=== PATIENT | female | born 1955 ===

== ENCOUNTER 2016-09-08 18:49 | Emergency (ER) | payer OTHER ==
[2016-09-08 19:13] VITALS: BP 118/71; PULSE 74; RESP 16; TEMP 98.5; O2SAT 97
--- NOTE | 2016-09-08 21:05 | ED PDOC ---
HPI: CCC, URI, Sore Throat Time Seen by Provider: 09/08/16 19:54 Chief Complaint (Nursing): Anxiety History Per: Patient (states that she was told to come to the ER because of concerns of outpatient x-ray finding that was done in July. Patient was in the clinic at [facility] today because of respiratory symptoms that started 1-2 months ago after she was exposed to vaccum bag dust. She is also very upset that she got two phone calls with conflicting results/concerns.) History/Exam Limitations: no limitations Associated Symptoms: Cough. denies: Fever, Chills, Sputum, Neck Pain, Sinus Drainage, Myalgias, Nasal Congestion, Nausea, Vomiting, Diarrhea Past Medical History Reviewed: Historical Data, Nursing Documentation, Vital Signs Vital Signs: Last Vital Signs Temp 98.5 F 09/08/16 19:10 Pulse 74 09/08/16 19:10 Resp 16 09/08/16 19:10 BP 118/71 09/08/16 19:10 Pulse Ox 97 09/08/16 21:14 - Medical History PMH: Diabetes, Hypothyroidism - Surgical History Surgical History: Tonsillectomy - Family History Family History: States: Unknown Family Hx - Living Arrangements Living Arrangements: Alone - Social History Current smoker - smoking cessation education provided: Yes - Home Medications Home Medications: Ambulatory Orders Medication Instructions Recorded Meclizine [Meclizine*] 25 mg PO Q6 PRN #20 tab 03/01/15 Nitrofurantoin Macrocrystals 100 mg PO BID #14 cap 03/01/15 [Macrobid] Azithromycin [Z-Milton] 250 mg PO DAILY #6 tab 09/08/16 - Allergies Allergies/Adverse Reactions: Allergies Allergy/AdvReac Type Severity Reaction Status Date / Time No Known Allergies Allergy Verified 09/08/16 19:10 Review of Systems ROS Statement: Except As Marked, All Systems Reviewed And Found Negative Constitutional: Negative for: Fever, Chills Respiratory: Positive for: Cough. Negative for: Shortness of Breath, Sputum Gastrointestinal: Negative for: Nausea, Vomiting Physical Exam - Reviewed Nursing Documentation Reviewed: Yes Vital Signs Reviewed: Yes - Physical Exam Appears: Positive for: Well, Non-toxic, No Acute Distress Head Exam: Positive for: ATRAUMATIC, NORMAL INSPECTION, NORMOCEPHALIC Skin: Positive for: Normal Color, Warm, DRY Eye Exam: Positive for: EOMI, Normal appearance, PERRL ENT: Positive for: Normal ENT Inspection Neck: Positive for: Normal, Painless ROM Cardiovascular/Chest: Positive for: Regular Rate, Rhythm Respiratory: Positive for: CNT, Normal Breath Sounds Gastrointestinal/Abdominal: Positive for: Normal Exam, Bowel Sounds, Soft Back: Positive for: Normal Inspection Extremity: Positive for: Normal ROM Neurologic/Psych: Positive for: Alert, Oriented - ECG O2 Sat by Pulse Oximetry: 97 Medical Decision Making Medical Decision Making: 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 Disposition - Clinical Impression Clinical Impression: Persistent cough - Patient ED Disposition Is Patient to be Admitted: No Doctor Will See Patient In The: Office Counseled Patient/Family Regarding: Diagnosis, Need For Followup, Rx Given - Disposition [facility]: [facility] [Outside] [facility] [Outside] [facility] [Outside] Disposition: Routine/Home Disposition Time: 21:00 Condition: STABLE Prescriptions: Azithromycin [Z-Milton] 250 mg PO DAILY #6 tab Instructions: Chronic Cough (ED) - POA Present On Arrival: None
--- NOTE | 2016-09-09 11:48 | RAD ---
HISTORY: abnormal x-ray in the outpatient setting COMPARISON: Comparison chest 05/14/2013 TECHNIQUE: Chest PA and lateral FINDINGS: LUNGS: No active pulmonary disease. PLEURA: Minor biapical pleural thickening No significant pleural effusion identified. No pneumothorax apparent. CARDIOVASCULAR: Normal. OSSEOUS STRUCTURES: Mild multilevel degenerative spondylosis of the thoracic spine. VISUALIZED UPPER ABDOMEN: Normal. OTHER FINDINGS: None. IMPRESSION: No acute cardiopulmonary disease.
== END 2016-09-08 22:05 | disposition home or self-care (01) ==
LOC: H.ER 18:49
DX: R05 Cough (principal)

== ENCOUNTER 2017-07-20 11:42 | Emergency (ER) | payer MEDICARE, OTHER ==
[2017-07-20 11:49] VITALS: BP 140/75; PULSE 81; RESP 16; TEMP 98.1; O2SAT 100
--- NOTE | 2017-07-20 12:31 | ED PDOC ---
HPI: Eye Injury/Pain Time Seen by Provider: 07/20/17 12:15 Chief Complaint (Nursing): Eye Problem Chief Complaint (Provider): Eye Problem History Per: Patient History/Exam Limitations: no limitations Onset/Duration Of Symptoms: Days (x1) Current Symptoms Are (Timing): Still Present Quality: "Pain" Additional Complaint(s): Josefina Tello is a 62 year old female with a past medical history of diabetes, asthma, and hypothyroidism, who is presenting to the ER for evaluation of left eye pain associated with redness, onset yesterday morning. Patient reports pain when opening eye, and light sensitivity. She states that the eyeball itself hurts and is watery, but she denies any headaches. 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 Patient offers no other medical complaints at this time. PMD: [facility] Past Medical History Reviewed: Historical Data, Nursing Documentation, Vital Signs Vital Signs: Last Vital Signs Temp 98.1 F 07/20/17 11:43 Pulse 81 07/20/17 11:43 Resp 16 07/20/17 11:43 BP 140/75 07/20/17 11:43 Pulse Ox 100 07/20/17 11:43 - Medical History PMH: Asthma, Hypothyroidism Denies: Diabetes, Hepatitis, HIV, HTN, Seizures, Sexually Transmitted Disease - Surgical History Surgical History: Tonsillectomy - Family History Family History: States: Unknown Family Hx - Home Medications Home Medications: Ambulatory Orders Medication Instructions Recorded Meclizine [Meclizine*] 25 mg PO Q6 PRN #20 tab 03/01/15 Nitrofurantoin Macrocrystals 100 mg PO BID #14 cap 03/01/15 [Macrobid] Azithromycin [Z-Milton] 250 mg PO DAILY #6 tab 09/08/16 Olopatadine 0.1% Opht [Patanol 5 1 drop OP BID #1 bottle 07/20/17 Ml] Polymyxin/Trimethoprim Sulfate 1 drop XX Q6H 10 Days bottle 07/20/17 [Polytrim Ophth Soln] - Allergies Allergies/Adverse Reactions: Allergies Allergy/AdvReac Type Severity Reaction Status Date / Time No Known Allergies Allergy Verified 09/08/16 19:10 Review of Systems ROS Statement: Except As Marked, All Systems Reviewed And Found Negative Eyes: Positive for: Pain (left eye), Redness, Other (watery, light sensitivity) Neurological: Negative for: Headache Physical Exam - Reviewed Nursing Documentation Reviewed: Yes Vital Signs Reviewed: Yes - Physical Exam Appears: Positive for: Non-toxic, No Acute Distress Head Exam: Positive for: ATRAUMATIC, NORMAL INSPECTION, NORMOCEPHALIC Skin: Positive for: Normal Color ((-) facial swelling). Negative for: Rash Eye Exam: Positive for: EOMI, PERRL, Other (sclera injected, left eye under black light: no abrasion, no dendritic lesions, no ulcers) Respiratory: Negative for: Respiratory Distress Neurologic/Psych: Positive for: Alert, Oriented. Negative for: Motor/Sensory Deficits - ECG O2 Sat by Pulse Oximetry: 100 (RA) Pulse Ox Interpretation: Normal Medical Decision Making Medical Decision Making: Discussed f.u with Dr. Durant Scribe Attestation: Documented by Tika Grant, acting as a scribe for Ashley Bassett PA-C Provider Scribe Attestation: All medical record entries made by the Scribe were at my direction and personally dictated by me. I have reviewed the chart and agree that the record accurately reflects my personal performance of the history, physical exam, medical decision making, and the department course for this patient. I have also personally directed, reviewed, and agree with the discharge instructions and disposition. Disposition - Clinical Impression Clinical Impression: Eye infection - Disposition Referrals: Deepak Durant MD [Staff Provider] - Disposition Time: 12:46 Condition: STABLE Prescriptions: Olopatadine 0.1% Opht [Patanol 5 Ml] 1 drop OP BID #1 bottle Polymyxin/Trimethoprim Sulfate [Polytrim Ophth Soln] 1 drop XX Q6H 10 Days bottle Instructions: Adenovirus Infections, Conjunctivitis ([place]) Forms: [facility] (Chinese)
== END 2017-07-20 13:03 | disposition home or self-care (01) ==
LOC: H.ER 11:42
DX: H10.32 Unspecified acute conjunctivitis, left eye (principal); E03.9 Hypothyroidism, unspecified; E11.9 Type 2 diabetes mellitus without complications; J45.909 Unspecified asthma, uncomplicated